=== PATIENT | male | born 1970 | race African-American/Black ===

== ENCOUNTER 2019-03-23 22:53 | Emergency (ER) | payer SELFPAY ==
[~2019-03-23] VITALS: Ht 188 cm; Wt 136.1 kg
[2019-03-23 22:57] VITALS: BP 165/99
[2019-03-23] MEDS ORDERED: ALBUTEROL SULFATE 2.5 MG/3 ML NEBU. NEB ONE (23:30)
[2019-03-24] MEDS ORDERED: METH4TAB2 PO (00:17)
[2019-03-24] MEDS ORDERED: AZIT250T6 PO (00:17)
[2019-03-24] MEDS ORDERED: CEPH-264 PO (00:17)
[2019-03-24] MEDS ORDERED: ALBU2.5V8 INH (00:17)
--- NOTE | 2019-03-24 00:17 | PHYS DOC ---
Past Medical History Past Medical History: Pneumonia ([facility]) Past Surgical History: Other Additional Past Surgical Histo: EXPLORATORY ABD SURGERY ([facility]) Alcohol Use: Occasionally Drug Use: Marijuana ([facility]) Adult General Chief Complaint Chief Complaint: COUGH HPI HPI Patient is a 48 year old M who states he has had sinus congestion and drainage for the last week and now has been coughing and concerned he might have pneumonia. ([facility]) Review of Systems Review of Systems Constitutional: Reports chills. Eyes: Denies change in visual acuity, redness, or eye pain [] HENT: Reports nasal congestion, sinus pressure Respiratory: Reports cough, SOB and wheezing. Cardiovascular: Denies chest pain GI: Denies abdominal pain, nausea, vomiting, bloody stools or diarrhea [] : Denies dysuria or hematuria [] Musculoskeletal: Denies back pain or joint pain [] Integument: Denies rash or skin lesions [] Neurologic: Denies headache, focal weakness or sensory changes [] Endocrine: Denies polyuria or polydipsia [] All other systems were reviewed and found to be within normal limits, except as documented in this note. ([facility]) Current Medications Current Medications Current Medications Medications (Trade) Dose Ordered Sig/Tony Start Time Stop Time Status Last Admin Dose Admin Albuterol Sulfate (Ventolin Neb Soln) 2.5 mg 1X ONCE 03/23/19 23:30 03/23/19 23:31 DC 03/23/19 23:34 2.5 MG Azithromycin (Zithromax) 500 mg 1X ONCE 03/24/19 00:30 03/24/19 00:30 DC 03/24/19 00:23 500 MG Prednisone (Prednisone) 60 mg 1X ONCE 03/24/19 00:30 03/24/19 00:30 DC 03/24/19 00:24 60 MG (GABINO GROVE DO) Allergies Allergies Allergies Coded Allergies Type Severity Reaction Last Updated Verified No Known Drug Allergies 03/23/19 No (GABINO GROVE DO) Physical Exam Physical Exam Constitutional: Well developed, well nourished, no acute distress, non-toxic appearance. [] HENT: Normocephalic, atraumatic, bilateral external ears normal, oropharynx moist. Nasal drainage, B maxillary sinus pressure. Eyes: PERRLA, EOMI, conjunctiva normal, no discharge. [] Neck: Normal range of motion, no tenderness, supple, no stridor. [] Cardiovascular:Heart rate regular. Lungs & Thorax: Wheezing throughout, decreased breath sounds on L. Abdomen: Bowel sounds normal, soft, no tenderness, no masses, no pulsatile masses. [] Skin: Warm, dry, no erythema, no rash. [] Back: No tenderness, no CVA tenderness. [] Extremities: No tenderness, no cyanosis, no clubbing, ROM intact, no edema. [] Neurologic: Alert and oriented X 3, normal motor function, normal sensory function, no focal deficits noted. [] Psychologic: Affect normal, judgement normal, mood normal. [] ([facility]) Current Patient Data Vital Signs Vital Signs Date Time Temp Pulse Resp B/P (MAP) Pulse Ox O2 Delivery O2 Flow Rate FiO2 03/23/19 23:35 Room Air 03/23/19 22:57 98.7 94 20 165/99 (121) 96 98.7 (GROVEGABINO DO) EKG EKG [] ([facility]) Radiology/Procedures Radiology/Procedures CXR: awaiting overread by Radiologist. R raised diaphragm. Possible haziness in L mid lung. ([facility]) Course & Med Decision Making Course & Med Decision Making Pertinent Labs and Imaging studies reviewed. (See chart for details) Pt with bronchitis vs early walking pneumonia. Also with sinusitis. Will treat with Zpack, Keflex, prednisone and inhaler. Pt to f/u with PCP. Return to ER if symptoms worsen at anytime. ([facility]) Dragon Disclaimer Dragon Disclaimer This electronic medical record was generated, in whole or in part, using a voice recognition dictation system. ([facility]) Departure Departure Impression: Primary Impression: Pneumonia Disposition: 01 HOME, SELF-CARE Condition: IMPROVED Referrals: NO PCP (PCP) Patient Instructions: Pneumonia, Adult, [id number] Additional Instructions: Rest, push fluids, take over the counter Mucinex and Flonase to help with congestion. Scripts Albuterol Sulfate (Proair Hfa) 8.5 Gm Hfa.aer.ad 1 PUFF INH PRN Q6HRS PRN for SHORTNESS OF BREATH, #1 INHALER Prov: CES[facility]ILL 03/24/19 Methylprednisolone (MEDROL) 4 Mg Tab.ds.pk 1 PKG PO UD, #1 PKG Prov: CESAR [facility]ILL 03/24/19 Cephalexin (KEFLEX) 500 Mg Capsule 1 CAP PO TID, #21 CAP Prov: CES[facility]ILL 03/24/19 Azithromycin (AZITHROMYCIN TABLET) 250 Mg Tablet 250 MG PO DAILY for ANTI-BIOTIC for 4 Days, #4 TAB 0 Refills Prov: CES[facility]ILL 03/24/19 Attending Signature Attending Signature I have reviewed the PA/ACCOUNT CLASSIFICATION CLERK's note and plan of care. I was available for consultation as needed during the patient's visit in the emergency department. I agree with the clinical impression, plan, and disposition. (GABINO GROVE DO) CES[facility]ILL Mar 24, 2019 00:17 GABINO GROVE DO Mar 26, 2019 15:39
[2019-03-24] MEDS ORDERED: predniSONE 20 MG TABLET PO ONE (00:30)
[2019-03-24] MEDS ORDERED: AZITHROMYCIN 250 MG TABLET. PO ONE (00:30)
--- NOTE | 2019-03-24 07:25 | RAD ---
CHEST PA LATERAL History: COUGH Comparison: Two-view chest, March 08, 2009. Findings: Tortuous thoracic aorta. Cardiac size is normal. There is eventration of the right hemidiaphragm.. Pulmonary vasculature is normal. The lungs are clear. No pleural effusion or pneumothorax is seen. There is no acute bone abnormality. Thoracic spine findings compatible with diffuse idiopathic skeletal hyperostosis. IMPRESSION: No acute cardiopulmonary process. Electronically signed by: Jeff Perez MD (03/24/2019 7:22 AM) [id number]
== END 2019-03-24 00:25 | disposition home or self-care (01) ==
LOC: ER 22:53
DX: J18.9 Pneumonia, unspecified organism (principal)
CPT/HCPCS: 71046; 94640; 99284; J7512; J7613; Q0144; 99285-25